=== PATIENT | male | born 1985 | race Caucasian/White ===

== ENCOUNTER 2020-05-03 20:10 | Emergency (ER) | payer BC ==
[~2020-05-03] VITALS: Ht 182.9 cm; Wt 81.6 kg
[2020-05-03 20:19] VITALS: Ht 182.9 cm; Wt 81.6 kg
[2020-05-03 21:05] VITALS: BP 113/71
== END 2020-05-03 21:05 | disposition home or self-care (01) ==
LOC: ED 20:10
DX: S97.81XA Crushing injury of right foot, initial encounter (principal); X58.XXXA Exposure to other specified factors, initial encounter; Y93.89 Activity, other specified; Y92.89 Other specified places as the place of occurrence of the external cause; Y99.8 Other external cause status